=== PATIENT | female | born 1940 | race Caucasian/White ===

== ENCOUNTER → 2019-06-09 | Day surgery (SDC) | payer OTHER ==
[~2019-06-09] VITALS: Ht 152.4 cm; Wt 56.7 kg
[~2019-06-09] MED LIST: ALLEGRA ALLERG180 MG PO; ASPIR 8181 M1 PO; AZOPT OPHTH1 %/10 M1 OPHTHALMIC; CARTIA XT180 M1 PO; CENTRUM SILVER1 EAC4 PO; CRANBERRY500 M3 PO; HAIR, SKIN AND1 EAC1 PO; KRILL OIL 1,001 EAC1 PO; LEXAPRO20 MG PO; LIPITOR40 MG PO; NEXIUM40 MG PO; OXYBUTYNIN CHLO15 MG PO; SYNTHROID50 MCG PO; TRAZODONE HCL50 MG PO; VITAMIN B COMP1 EACH PO; VITAMIN B-12500 MCG PO; VITAMIN C500 M2 PO; VITAMIN D1000 UNI2 PO; XARELTO20 MG PO
--- NOTE | ~2019-06-09 | O ---
[facility] [place] [address] OPERATIVE REPORT Name: ROSELINE GAO Room #: REG [facility]..#: [id number] Admission: 06/09/19 Attend Phys: James Guerrero MD Discharge: Date of : 38 Report #: [id number] THIS REPORT FOR: //name// CC: MAYO Guerrero DATE OF SERVICE: 06/09/2019 CORE CLEANER: None. PREOPERATIVE DIAGNOSIS: Bilateral upper lid ptosis with superior visual field defects both eyes. POSTOPERATIVE DIAGNOSIS: Bilateral upper lid ptosis with superior visual field defects both eyes. OPERATION PERFORMED: Bilateral upper lid functional ptosis repair. CORE CLEANER: None. ANESTHESIA: Local with IV sedation. COMPLICATIONS: None. INDICATIONS FOR PROCEDURE: This patient has bilateral upper lid ptosis with superior visual field loss both eyes. Visual field testing demonstrates dense superior visual defects. Retesting with the upper lid elevated shows an improvement in visual field loss of over 30% and in excess of 12 degrees. The current procedure is being undertaken in order to improve the patient's visual function. Informed consent was obtained to include but not limited to the risk of loss of vision, bleeding, infection, scarring, failure to improve the problem and need for further surgery, such as adjustment of lid height. DESCRIPTION OF PROCEDURE: The patient was taken to the operating room, where 2% Xylocaine with epinephrine mixed with equal parts of 0.75% Marcaine with Wydase was administered transcutaneously to each upper lid. The patient was then prepped and draped in the usual sterile fashion. An upper lid crease incision was then made bilaterally and the dissection was carried down until the orbital septum was identified. The orbital septum was then cleared and the preaponeurotic fat identified. The levator aponeurosis was then disinserted from the anterior surface of the tarsal plate and dissected [address] [address] OPERATIVE REPORT Name: ROSELINE GAO Room #: REG [facility].#: [id number] Admission: 06/09/19 Attend Phys: James Guerrero MD Discharge: Date of : 38 Report #: [id number] free in the avascular Klein's muscle plane. The aponeurosis was then advanced and reattached to the anterior surface of the tarsal plate with interrupted mattress 6-0 Novafil sutures on each side, adjusting for height and contour. The redundant aponeurosis was then amputated. The incision was then closed with multiple interrupted 6-0 chromic sutures that were used to recreate an upper lid crease. The skin was closed with a running 6-0 plain gut suture. The wound was then cleaned and dressed with ophthalmic antibiotic ointment followed by a Telfa pad. The patient was transported to the recovery area, having tolerated the procedure well with no anesthesia or operative complications being noted. By: [id number] MD lynn Segura
[2019-06-09 10:49] VITALS: BP 126/71
== END | disposition home or self-care (01) ==
LOC: OR 08:08
DX: H02.423 Myogenic ptosis of bilateral eyelids (principal); H53.462 Homonymous bilateral field defects, left side; H53.461 Homonymous bilateral field defects, right side; I10 Essential (primary) hypertension; E78.5 Hyperlipidemia, unspecified; I48.91 Unspecified atrial fibrillation; K21.9 Gastro-esophageal reflux disease without esophagitis; F32.9 Major depressive disorder, single episode, unspecified; Z98.890 Other specified postprocedural states; Z87.442 Personal history of urinary calculi; Z90.49 Acquired absence of other specified parts of digestive tract; Z96.653 Presence of artificial knee joint, bilateral; Z86.73 Personal history of transient ischemic attack (TIA), and cerebral infarction without residual deficits; Z98.41 Cataract extraction status, right eye; Z98.42 Cataract extraction status, left eye; Z79.01 Long term (current) use of anticoagulants; Z88.0 Allergy status to penicillin; Z79.82 Long term (current) use of aspirin
CPT/HCPCS: 50010; 50101; 50386; 50398; 51636; 56528; 56531